=== PATIENT | male | born 1955 | race Caucasian/White ===

== ENCOUNTER → 2017-09-01 | Outpatient (CLI) | payer BC, OTHER ==
[~2017-09-01] VITALS: Ht 175.3 cm; Wt 110.2 kg
[~2017-09-01] MED LIST: ANAFRANIL50 MG PO; FLOMAX0.4 MG PO; NORCO 5-325 TA1 EACH PO
--- NOTE | ~2017-09-01 | HPC ---
[facility] [place] [address] PAIN MANAGEMENT CONSULTATION Name: MIRIAM CARR Dariel Room #: REG ETTA TammiMike.#: [id number] Admission: 09/01/17 Attend Phys: Alexx Jarrell DO Discharge: Date of : 55 Report #: [id number] THIS REPORT FOR: //name// CC: JONATHAN Hauser MD Physician staff DATE OF SERVICE: 09/01/2017 REFERRING PHYSICIAN: Kendrick Hauser MD CHIEF COMPLAINT: Low back pain, right lower extremity pain and paresthesias. HISTORY OF PRESENT ILLNESS: As you know, the patient is a 62-year-old male who has had a longstanding history of low back pain that began somewhere "in high school." He states that over the past 2 years, his pain has progressively worsened. The patient sought evaluation through his primary care physician who ultimately sent the patient to see Neurosurgery about surgical options. After review from Neurosurgery, the patient was advised to try on more conservative treatments. The patient was subsequently referred to our clinic by his Neurosurgeon, Dr. Jonathan Hauser to trial epidural injections under fluoroscopic guidance to address lumbar radicular symptoms. The patient indicates no injury, no trauma that led to symptom development. He indicates that conservative treatment via medication management has not been effective in pain control. He has been referred to discuss more aggressive treatment options. The patient indicates today pain is continuous, describes the pain as burning, shooting, aching, stabbing and numbness. Places current pain score at 7-8/10, daily average at 8/10, worst pain is at 10/10. The patient states that standing, walking, weightbearing on his right leg cause intensification of pain. Lying on his left side or sitting and repositioning appears to improve pain. He has been referred to our service to discuss lumbar epidural injections under fluoroscopic guidance. PAST MEDICAL HISTORY: Benign prostatic hypertrophy, obsessive compulsive disorder. PAST SURGICAL HISTORY: Lithotripsy. SOCIAL HISTORY: The patient smokes 1/4 pack or greater per day, he has done so for 40 years. Denies IV or illicit drug use. Admits to 5 beers per week. He is retired about a year and a half ago. He is not receiving workmen's compensation nor is he trying to obtain disability benefits. He is not in litigation in regards to pain. He is unaccompanied at today's visit. [address] [address] PAIN MANAGEMENT CONSULTATION Name: KUMAR CARRJOSUE Vieira Room #: REG CLI CorrinaCorrina#: [id number] Admission: 09/01/17 Attend Phys: Alexx Jarrell DO Discharge: Date of : 55 Report #: [id number] REVIEW OF SYSTEMS: Positive for decrease in appetite, fatigue and weakness, hearing loss with tinnitus, rectal bleeding, burning and painful urination, kidney stones, sexual difficulty, numbness and tingling sensations, depression, benign prostatic hypertrophy. All other review of systems negative per 12-point review of systems other than those listed in history of present illness. Pain impact score 42/70 indicating ahygjafu-ko-zjtjte interference of daily activities secondary to pain. ALLERGIES: No known drug allergies. CURRENT MEDICATIONS: Hydrocodone/acetaminophen 5/325 one tab every 6 hours p.r.n. for pain, ____ 0.4 mg once a day, Anafranil 50 mg once a day. IMAGING: See MRI in chart. PHYSICAL EXAMINATION: VITAL SIGNS: Blood pressure 140/105, pulse 78, respiratory rate 16 and unlabored. The patient is 96% on room air. Height 5 feet 9 inches tall, weight 243 pounds, BMI calculated 35.9. GENERAL: Well-developed, well-nourished, well-hydrated, 62-year-old male. He appears his stated age. He is placing current pain score at 8/10. HEENT: Normocephalic, atraumatic. Pupils equal, round, reactive to light. Extraocular muscles are intact. Sclerae nonicteric without injection. NEUROLOGIC: Cranial nerves 2-12 grossly intact. Speech fluent. The patient deemed a good historian. LUNGS: Clear, no wheeze, rhonchi or rales. CARDIOVASCULAR: Regular. No appreciable gallop, no rub. ABDOMEN: Soft, nontender, nondistended, obese, normoactive bowel sounds. EXTREMITIES: Show no clubbing, no cyanosis, no edema. MUSCULOSKELETAL: Lower extremity strength appears equal and symmetrical 5/5, muscle bulk and tone equal and symmetrical. Deep tendon reflexes are symmetrical at patella and Achilles. Ankle clonus negative. Babinski is negative. Seated straight leg raising negative. Supine straight leg raising equivocal on the right. Lumbar provocation testing is met with increased pain with extension and rotation to the right. ASSESSMENT: 1. Lumbar radiculopathy. 2. Mild displacement of lumbar intervertebral disk with radiculopathy. 3. Lumbosacral spondylosis with radiculopathy. 4. Lumbar degeneration. 5. Chronic intractable pain. PLAN: [facility] [address] [place] [address] PAIN MANAGEMENT CONSULTATION Name: MIRIAM CARR Room #: REG CLGarcia Rainey#: [id number] Admission: 09/01/17 Attend Phys: Alexx Jarrell DO Discharge: Date of : 55 Report #: [id number] 1. The patient has been referred to our service by his Neurosurgeon, Dr. Jonathan Hauser for evaluation for possible lumbar radiculopathy. The patient is experiencing pain in a dermatomal distribution radiating down the right leg. It appears the dermatomal distribution correlating the S1 nerve root. The patient sought evaluation with Neurosurgery who advised the patient to trial epidural injections. He has been referred to this clinic, discussed that option. 2. We discussed with the patient options for treatment including the requested epidural injection. These would include physical therapy, stretching exercise, core strengthening and weight loss. We discussed medications with the addition of a neuropathic medication in conjunction with his current opioid medication. We discussed the requested epidural injections, spinal cord stimulator and surgical options. After reviewing risks and benefits of all proposed treatment options, the patient chose to undergo the epidural injection. 3. We will schedule the patient back to undergo the epidural injection. It has come to our attention that his third green party payer is out of area network for our current hospital. He wishes to switch to our facilities at [facility] who accepted his insurance as in network reducing his overall cost. We will be shifting his care to our clinic at [facility] on Thursday. We have taken the liberty of scheduling him over at that clinic to undergo epidural injection. 4. We wish to thank Dr. Hauser for the referral of patient to our clinic. We will keep you apprised of his response to treatment as we address his lumbar radicular symptoms involving low back and right lower extremity. Again, we wish to thank you for the opportunity to see this patient in consultation. <ELECTRONICALLY SIGNED> By: Alexx Jarrell DO 09/02/17 [id number] Alexx Jarrell DO /nt
[2017-09-01 12:43] VITALS: BP 140/105
== END ==
LOC: PAIN 08:16
DX: M47.27 Other spondylosis with radiculopathy, lumbosacral region (principal); M51.16 Intervertebral disc disorders with radiculopathy, lumbar region; G89.4 Chronic pain syndrome